=== PATIENT | male | born 1975 | race Caucasian/White ===

== ENCOUNTER 2017-01-02 13:09 | Inpatient (IN) | payer SELFPAY ==
[2017-01-02 15:02] LABS: Hematocrit 47 % (42-52); Hemoglobin 15.9 g/dl (14.0-18.0); Mean Corpuscular HGB Conc 34 g/dl (31-36); Mean Corpuscular Hemoglobin 31 pg (27-31); Mean Corpuscular Volume 90 fL (80-94); Mean Platelet Volume 8 um3 (7.4-10.4); Red Blood Count 5.19 10^6/ul (4.0-5.4); Red Cell Distribution Width 13 % (10.5-15); White Blood Count 7.5 10^3/ul (3.5-10.8)
[2017-01-02 15:20] LABS: ALT 42 U/L (7-52); AST 28 U/L (13-39); Albumin 4.6 g/dL (3.2-5.2); Alkaline Phosphatase 67 U/L (34-104); Anion Gap 10 mmol/L (2-11); Blood Urea Nitrogen 13 mg/dL (6-24); CO2 Carbon Dioxide 23 mmol/L (22-32); Calcium 10.1 mg/dL (8.6-10.3); Chloride 104 mmol/L (101-111); Creatine Kinase 342 U/L (10-223); EGFR African American 96.4 (>60); Globulin 3.4 g/dL (2-4); Glucose 105 mg/dL (70-100); Potassium 3.8 mmol/L (3.5-5.0); Sodium 137 mmol/L (133-145)
[2017-01-02 15:41] LABS: Acetaminophen < 15 mcg/mL; Alcohol < 10 mg/dL (<10); Salicylate < 2.50 mg/dL (<30)
[2017-01-02 15:51] LABS: TSH (Thyroid Stimulating Horm) 2.52 mcIU/mL (0.34-5.60)
[2017-01-02 16:17] LABS: Urine Bacteria Absent (Absent); Urine Bilirubin Negative (Negative); Urine Glucose Negative (Negative); Urine Nitrite Negative (Negative)
[2017-01-02 16:44] LABS: Benzodiazepine Urine Screen None Detected (None Detect)
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
[2017-01-02] MEDS ORDERED: QUEtiapine XR TAB* 50 MG ONE (21:52)
[2017-01-03] MEDS ORDERED: Al Hydrox/Mg Hydrox/Simet LIQ* 30 ML UDC PO PRN (02:23)
[2017-01-03] MEDS ORDERED: Acetaminophen TAB* 325 MG PO PRN (02:23)
[2017-01-03] MEDS: Vitamin THERAPEUTIC TAB PO SCH (10:30)
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
[2017-01-03] MEDS ORDERED: Influenza VAC *QUAD* 2017-18* 0.5 ML SYRINGE IM ONE (17:00)
[2017-01-03] MEDS ORDERED: LORazepam TAB(*) 1 MG PO ONE (18:17)
[2017-01-03] MEDS ORDERED: LORazepam TAB(*) 1 MG PO PRN (18:17)
[2017-01-03] MEDS: ARIPiprazole TAB* 15 MG PO SCH (20:30)
[2017-01-04] MEDS ORDERED: Influenza VAC *QUAD* 2017-18* 0.5 ML SYRINGE IM ONE (09:00)
[2017-01-04] MEDS: ARIPiprazole TAB* 15 MG PO SCH (10:16)
[2017-01-04] MEDS: Vitamin THERAPEUTIC TAB PO SCH (10:16)
[2017-01-04 10:26] LABS: HDL Cholesterol 32.4 mg/dL
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
[2017-01-04] MEDS: Neomycin/Polym/Bacit TOP OINT* 15 GM TOPICAL SCH (19:17)
[2017-01-05] MEDS: Vitamin THERAPEUTIC TAB PO SCH (10:21)
[2017-01-05] MEDS: ARIPiprazole TAB* 15 MG PO SCH (10:21)
[2017-01-05] MEDS: Neomycin/Polym/Bacit TOP OINT* 15 GM TOPICAL SCH (10:22)
[2017-01-06] MEDS: Vitamin THERAPEUTIC TAB PO SCH (09:49)
[2017-01-06] MEDS: ARIPiprazole TAB* 15 MG PO SCH (09:49)
[2017-01-06] MEDS: Neomycin/Polym/Bacit TOP OINT* 15 GM TOPICAL SCH (09:50)
--- NOTE | 2017-01-06 19:10 | PN ---
Subjective - Subjective Service Type: 42037 Hosp care 15 min low complexity Subjective: Johnie denies any problems especially any form of hallucinations. Very soft spoken, pleasent but guarded. At times mumbles to self. Objective - Appearance Appearance: Obese Dysmorphic Features: No Hygiene: Normal Grooming: Disheveled - Behavior Psychomotor Activities: Abnormal-Decreased Exhibits Abnormal Movement: No - Attitude and Relatedness Attitude and Relatedness: Cooperative Eye Contact: Fair - Speech Quality: Unpressured Latencies: Long Quantity: Terse - Mood Patient's Decription of Mood: "Fine" - Affect Observed Affect: Constricted Affect Consistent with: Euthymia - Thought Process Patient's Thought Process: Coherent, Circumstantial, Impoverished Thought Content: No Passive Wish, No Suicidal Planning, No Homicidal Ideation, No Paranoid Ideation - Sensorium Experiencing Hallucinations: No, Sensorium is Clear Type of Hallucinations: Visual: No, Auditory: No, Command: No - Level of Consciousness Level of Consciousness: Alert Orientation: Yes Intact, Yes Orientated to Time, Yes Orientated to Place, Yes Orientated to Person - Impulse Control Impulse Control: Intact - Insight and Judgement Insight and Judgement: Poor - Group Participation Particating in Group Activities: Yes - Medication Management Medication Management Adherence: Yes Assessment - Assessment Merits Inpatient Hospitalization: [facility] Inpatient DSM-IV Dx: 1. Schizophrenia, paranoid Plan - Plan Treatment Plan: Name: JOHNIE ADAIR JR Birthdate: 1975 [id number] Medications: Current Medications Acetaminophen (Tylenol Tab*) 650 mg PO Q4H PRN PRN Reason: PAIN or TEMP > 101 F Al Hydrox/Mg Hydrox/Simethicone (Maalox Plus*) 30 ml PO Q4H PRN PRN Reason: INDIGESTION Aripiprazole (Abilify Tab*) 15 mg PO DAILY [facility] Last Admin: 01/06/17 09:49 Dose: 15 mg Lorazepam (Ativan Tab(*)) 2 mg PO Q6H PRN PRN Reason: ANXIETY Last Admin: 01/05/17 21:59 Dose: 2 mg Multivitamins (Theragran Tab*) 1 tab PO DAILY [facility] Last Admin: 01/06/17 09:49 Dose: 1 tab Neomycin/Polymyxin/Bacitracin (Neosporin Top Oint Tube*) 1 applic TOPICAL DAILY [facility] Last Admin: 01/06/17 09:50 Dose: 1 applic - Discharge Plan Discharge Plan: Outpatient Follow Up Outpatient Program: [facility]
[2017-01-07] MEDS: ARIPiprazole TAB* 15 MG PO SCH ×2 (08:56→20:25)
[2017-01-07] MEDS: Vitamin THERAPEUTIC TAB PO SCH (08:56)
[2017-01-07] MEDS: Neomycin/Polym/Bacit TOP OINT* 15 GM TOPICAL SCH (08:57)
--- NOTE | 2017-01-07 10:41 | PN ---
Subjective - Subjective Service Type: [id number] Hosp care 15 min low complexity Subjective: Patient noted to be visible in the milieu and attending some groups over the weekend. He reports his mood as "okay" today. Patient reports his sleep and appetite are "good". Patient denies thoughts that peers or staff are plotting to harm. He reports benefit from the hospitalization. He reports med compliance and denies med s/e's. Patient continues to believe his cousin is plotting to harm him. He reports multiple times where he "put it together in my mind" what he was trying to do to me before he could. Patient reports he does not want to return to his family home. He reports desire to stay in the hospital as long as possible. He reports desire to get his own apartment. He denies SI/HI and AH/VH. Objective - Appearance Appearance: Obese Dysmorphic Features: No Hygiene: Normal Grooming: Fairly Well Kept - Behavior Psychomotor Activities: Normal Exhibits Abnormal Movement: No - Attitude and Relatedness Attitude and Relatedness: Cooperative Eye Contact: Fair - Speech Quality: Unpressured Latencies: Normal Quantity: Appropriate - Mood Patient's Decription of Mood: "Okay" - Affect Observed Affect: Fair Affect Consistent with: Euthymia - Thought Process Patient's Thought Process: Coherent Thought Content: No Passive Wish, No Suicidal Planning, No Homicidal Ideation, No Paranoid Ideation - Sensorium Experiencing Hallucinations: No, Sensorium is Clear Type of Hallucinations: Visual: No, Auditory: No, Command: No - Level of Consciousness Level of Consciousness: Alert Orientation: Yes Intact, Yes Orientated to Time, Yes Orientated to Place, Yes Orientated to Person - Impulse Control Impulse Control: Intact - Insight and Judgement Insight and Judgement: Fair - Group Participation Particating in Group Activities: Yes - Medication Management Medication Management Adherence: Yes Assessment - Assessment Merits Inpatient Hospitalization: For Immediate Safety, For Stabilization Inpatient DSM-IV Dx: 1. Schizophrenia, paranoid Plan - Plan Treatment Plan: Name: THEA ADAIR Birthdate: 1975 [id number] PLAN: ------ 1. Continue admission to [facility] [facility] for safety and symptom mx. 2. Continue Abilify 15mg po qhs for psychosis. Plan to uptitrate to 30mg on Saturday. 3. Continue working to obtain collateral information from family. 4. Patient to participate in milieu and group activities. Continued Medication Management: Start Medication Medications: Current Medications Acetaminophen (Tylenol Tab*) 650 mg PO Q4H PRN PRN Reason: PAIN or TEMP > 101 F Al Hydrox/Mg Hydrox/Simethicone (Maalox Plus*) 30 ml PO Q4H PRN PRN Reason: INDIGESTION Aripiprazole (Abilify Tab*) 15 mg PO BEDTIME HARSHAL Lorazepam (Ativan Tab(*)) 2 mg PO Q6H PRN PRN Reason: ANXIETY Last Admin: 01/05/17 21:59 Dose: 2 mg Multivitamins (Theragran Tab*) 1 tab PO DAILY HARSHAL Last Admin: 01/07/17 08:56 Dose: 1 tab Neomycin/Polymyxin/Bacitracin (Neosporin Top Oint Tube*) 1 applic TOPICAL DAILY HARSHAL Last Admin: 01/07/17 08:57 Dose: 1 applic - Discharge Plan Discharge Plan: Outpatient Follow Up
--- NOTE | 2017-01-07 13:05 | PN ---
MHU: Group Therapy Note - Service Type Service Type: [id number] Group Psychotherapy - Cognitive Behavioral Group Therapy ( CBT):Patient was attentive and participatory in CBT programming this morning, and remained in good behavioral control. Patient expressed positive insights regarding relevant treatment interventions and goals.
[2017-01-08] MEDS: Vitamin THERAPEUTIC TAB PO SCH (10:04)
[2017-01-08] MEDS: Neomycin/Polym/Bacit TOP OINT* 15 GM TOPICAL SCH (10:05)
--- NOTE | 2017-01-08 11:18 | PN ---
MHU: Group Therapy Note - Service Type Service Type: [id number] Group Psychotherapy - Cognitive Behavioral Group Therapy ( CBT):Patient was attentive and participatory in CBT programming this morning, and remained in good behavioral control. Patient expressed positive insights regarding relevant treatment interventions and goals.
--- NOTE | 2017-01-08 16:00 | PN ---
Subjective - Subjective Service Type: [id number] Hosp care 15 min low complexity Subjective: Patient noted to be visible in the milieu, isolative, but participating in milieu activities and groups. Patient reports ongoing benefit from his admission. He reports ongoing paranoid ideations regarding returning home after discharge. He still feels his nephew is pumping a gas into his room through the [place]. Patient is med compliant and denies med s/e's. Patient again reports good sleep last night and reports good appetite. He continues to report desire to discharge to a residential facility. He denies SI/HI and AH/VH. Objective - Appearance Appearance: Obese Dysmorphic Features: No Hygiene: Normal Grooming: Fairly Well Kept - Behavior Psychomotor Activities: Normal Exhibits Abnormal Movement: No - Attitude and Relatedness Attitude and Relatedness: Cooperative Eye Contact: Fair - Speech Quality: Unpressured Latencies: Normal Quantity: Appropriate - Mood Patient's Decription of Mood: "Anxious" - Affect Observed Affect: Fair Affect Consistent with: Euthymia - Thought Process Patient's Thought Process: Coherent Thought Content: Yes Paranoid Ideation, No Passive Wish, No Suicidal Planning, No Homicidal Ideation - Sensorium Experiencing Hallucinations: No, Sensorium is Clear Type of Hallucinations: Visual: No, Auditory: No, Command: No - Level of Consciousness Level of Consciousness: Alert Orientation: Yes Intact, Yes Orientated to Time, Yes Orientated to Place, Yes Orientated to Person - Impulse Control Impulse Control: Intact - Insight and Judgement Insight and Judgement: Fair - Group Participation Particating in Group Activities: Yes - Medication Management Medication Management Adherence: Yes Assessment - Assessment Merits Inpatient Hospitalization: For Immediate Safety, For Stabilization Inpatient DSM-IV Dx: 1. Schizophrenia, paranoid Plan - Plan Treatment Plan: Name: THEA ADAIR Birthdate: 1975 [id number] PLAN: ------ 1. Continue admission to [facility] for safety and symptom mx. 2. Increase Abilify from 15mg to 30mg po qhs for psychosis. 3. Collateral information gained from family. 4. Patient to participate in milieu and group activities. Medications: Current Medications Acetaminophen (Tylenol Tab*) 650 mg PO Q4H PRN PRN Reason: PAIN or TEMP > 101 F Al Hydrox/Mg Hydrox/Simethicone (Maalox Plus*) 30 ml PO Q4H PRN PRN Reason: INDIGESTION Aripiprazole (Abilify Tab*) 15 mg PO BEDTIME HARSHAL Last Admin: 01/07/17 20:25 Dose: 15 mg Lorazepam (Ativan Tab(*)) 2 mg PO Q6H PRN PRN Reason: ANXIETY Last Admin: 01/05/17 21:59 Dose: 2 mg Multivitamins (Theragran Tab*) 1 tab PO DAILY HARSHAL Last Admin: 01/08/17 10:04 Dose: 1 tab Neomycin/Polymyxin/Bacitracin (Neosporin Top Oint Tube*) 1 applic TOPICAL DAILY HARSHAL Last Admin: 01/08/17 10:05 Dose: 1 applic - Discharge Plan Discharge Plan: Outpatient Follow Up
[2017-01-08] MEDS: ARIPiprazole TAB* 15 MG PO SCH ×2 (20:35→20:53)
[2017-01-09] MEDS: Vitamin THERAPEUTIC TAB PO SCH ×2 (09:14→09:18)
[2017-01-09] MEDS: Neomycin/Polym/Bacit TOP OINT* 15 GM TOPICAL SCH (09:19)
--- NOTE | 2017-01-09 10:46 | PN ---
Subjective - Subjective Service Type: [id number] Hosp care 15 min low complexity Subjective: Patient noted to be visible in the milieu, continues to be isolative, but participates in milieu activities and groups. Patient reports ongoing paranoid ideations regarding returning home after discharge. He reports a good visit from his father. Patient is med compliant and denies med s/e's. Patient again reports good sleep last night and reports good appetite. He continues to report desire to discharge to a residential facility. He does not want to return to his home. He denies SI/HI and AH/VH. Objective - Appearance Appearance: Obese Dysmorphic Features: No Hygiene: Normal Grooming: Fairly Well Kept - Behavior Psychomotor Activities: Normal Exhibits Abnormal Movement: No - Attitude and Relatedness Attitude and Relatedness: Cooperative Eye Contact: Fair - Speech Quality: Unpressured Latencies: Normal Quantity: Appropriate - Mood Patient's Decription of Mood: "Anxious" - Affect Observed Affect: Fair Affect Consistent with: Euthymia - Thought Process Patient's Thought Process: Coherent Thought Content: Yes Paranoid Ideation, No Passive Wish, No Suicidal Planning, No Homicidal Ideation - Sensorium Experiencing Hallucinations: No, Sensorium is Clear Type of Hallucinations: Visual: No, Auditory: No, Command: No - Level of Consciousness Level of Consciousness: Alert Orientation: Yes Intact, Yes Orientated to Time, Yes Orientated to Place, Yes Orientated to Person - Impulse Control Impulse Control: Intact - Insight and Judgement Insight and Judgement: Fair - Group Participation Particating in Group Activities: Yes - Medication Management Medication Management Adherence: Yes Assessment - Assessment Merits Inpatient Hospitalization: For Immediate Safety, For Stabilization Inpatient DSM-IV Dx: 1. Schizophrenia, paranoid Plan - Plan Treatment Plan: Name: THEA ADAIR Birthdate: 1975 [id number] PLAN: ------ 1. Continue admission to [facility] [place] [facility] for safety and symptom mx. 2. Continue Abilify 30mg po qhs for psychosis. 3. Collateral information gained from family. 4. Begin planning regarding discharge disposition. 5. Patient to participate in milieu and group activities. Medications: Current Medications Acetaminophen (Tylenol Tab*) 650 mg PO Q4H PRN PRN Reason: PAIN or TEMP > 101 F Al Hydrox/Mg Hydrox/Simethicone (Maalox Plus*) 30 ml PO Q4H PRN PRN Reason: INDIGESTION Aripiprazole (Abilify Tab*) 30 mg PO BEDTIME HARSHAL Last Admin: 01/08/17 20:53 Dose: Not Given Lorazepam (Ativan Tab(*)) 2 mg PO Q6H PRN PRN Reason: ANXIETY Last Admin: 01/05/17 21:59 Dose: 2 mg Multivitamins (Theragran Tab*) 1 tab PO DAILY HARSHAL Last Admin: 01/09/17 09:18 Dose: 1 tab Neomycin/Polymyxin/Bacitracin (Neosporin Top Oint Tube*) 1 applic TOPICAL DAILY HARSHAL Last Admin: 01/09/17 09:19 Dose: 1 applic - Discharge Plan Discharge Plan: Outpatient Follow Up
--- NOTE | 2017-01-09 16:22 | PN ---
MHU: Group Therapy Note - Service Type Service Type: [id number] Group Psychotherapy - Medication Education Group: Patient was attentive and participatory in group, and remained in good behavioral control. Patient expressed positive insights regarding relevant treatment interventions. Patient stated understanding of material discussed and had appropriate questions.
[2017-01-09] MEDS: ARIPiprazole TAB* 15 MG PO SCH (20:07)
[2017-01-09] MEDS: Docusate CAP* 100 MG PO SCH (20:08)
[2017-01-10] MEDS: Vitamin THERAPEUTIC TAB PO SCH (10:04)
--- NOTE | 2017-01-10 10:43 | PN ---
Subjective - Subjective Service Type: [id number] Hosp care 15 min low complexity Subjective: Patient noted to be visible in the milieu, noted to be more social with peers. Patient is participating in milieu activities and groups. Patient reports ongoing paranoid ideations regarding returning home after discharge. Patient is med compliant and denies med s/e's. Patient again reports good sleep last night and reports good appetite. Patient reports constipation and is amenable to start of 1x MagCitrate. He continues to report desire to discharge to a residential facility. He does not want to return to his home. He denies SI/HI and AH/VH. Objective - Appearance Appearance: Obese Dysmorphic Features: No Hygiene: Normal Grooming: Fairly Well Kept - Behavior Psychomotor Activities: Normal Exhibits Abnormal Movement: No - Attitude and Relatedness Attitude and Relatedness: Cooperative Eye Contact: Fair - Speech Quality: Unpressured Latencies: Normal Quantity: Appropriate - Mood Patient's Decription of Mood: "Fine" - Affect Observed Affect: Fair Affect Consistent with: Euthymia - Thought Process Patient's Thought Process: Coherent Thought Content: Yes Paranoid Ideation, No Passive Wish, No Suicidal Planning, No Homicidal Ideation - Sensorium Experiencing Hallucinations: No, Sensorium is Clear Type of Hallucinations: Visual: No, Auditory: No, Command: No - Level of Consciousness Level of Consciousness: Alert Orientation: Yes Intact, Yes Orientated to Time, Yes Orientated to Place, Yes Orientated to Person - Impulse Control Impulse Control: Intact - Insight and Judgement Insight and Judgement: Fair - Group Participation Particating in Group Activities: Yes - Medication Management Medication Management Adherence: Yes Assessment - Assessment Merits Inpatient Hospitalization: For Immediate Safety, For Stabilization Inpatient DSM-IV Dx: 1. Schizophrenia, paranoid Plan - Plan Treatment Plan: Name: THEA ADAIR Birthdate: 1975 [id number] PLAN: ------ 1. Continue admission to [facility] for safety and symptom mx. 2. Continue Abilify 30mg po qhs for psychosis. 3. Collateral information gained from family. 4. Begin planning regarding discharge disposition. 5. Patient to participate in milieu and group activities. Medications: Current Medications Acetaminophen (Tylenol Tab*) 650 mg PO Q4H PRN PRN Reason: PAIN or TEMP > 101 F Al Hydrox/Mg Hydrox/Simethicone (Maalox Plus*) 30 ml PO Q4H PRN PRN Reason: INDIGESTION Aripiprazole (Abilify Tab*) 30 mg PO BEDTIME HARSHAL Last Admin: 01/09/17 20:07 Dose: 30 mg Docusate Sodium (Colace Cap*) 200 mg PO BEDTIME HARSHAL Last Admin: 01/09/17 20:08 Dose: 200 mg Lorazepam (Ativan Tab(*)) 2 mg PO Q6H PRN PRN Reason: ANXIETY Last Admin: 01/05/17 21:59 Dose: 2 mg Multivitamins (Theragran Tab*) 1 tab PO DAILY HARSHAL Last Admin: 01/10/17 10:04 Dose: 1 tab Neomycin/Polymyxin/Bacitracin (Neosporin Top Oint Tube*) 1 applic TOPICAL DAILY HARSHAL Last Admin: 01/09/17 09:19 Dose: 1 applic - Discharge Plan Discharge Plan: Outpatient Follow Up
[2017-01-10] MEDS: Neomycin/Polym/Bacit TOP OINT* 15 GM TOPICAL SCH (12:56)
[2017-01-10] MEDS ORDERED: Magnesium CITRATE* 300 ML BTL PO ONE (17:00)
[2017-01-10] MEDS: Docusate CAP* 100 MG PO SCH (20:16)
[2017-01-10] MEDS: ARIPiprazole TAB* 15 MG PO SCH (20:16)
[2017-01-11] MEDS: Vitamin THERAPEUTIC TAB PO SCH (07:43)
[2017-01-11] MEDS: Neomycin/Polym/Bacit TOP OINT* 15 GM TOPICAL SCH (07:44)
--- NOTE | 2017-01-11 10:00 | PN ---
Subjective - Subjective Service Type: [id number] Hosp care 15 min low complexity Subjective: Patient noted to be visible in the milieu, noted to be social with select peers. Patient is participating in milieu activities and groups. Patient reports ongoing paranoid ideations regarding returning home after discharge. Patient is med compliant and denies med s/e's. Patient again reports good sleep last night and reports good appetite. Patient is med compliant and denies med s/e's. He does not want to return to his home. He denies SI/HI and AH/VH. Objective - Appearance Appearance: Well Developed/Nourished, Healthy Appearing Dysmorphic Features: No Hygiene: Normal Grooming: Fairly Well Kept - Behavior Psychomotor Activities: Normal Exhibits Abnormal Movement: No - Attitude and Relatedness Attitude and Relatedness: Cooperative Eye Contact: Fair - Speech Quality: Unpressured Latencies: Normal Quantity: Terse - Affect Observed Affect: Fair Affect Consistent with: Euthymia - Thought Process Patient's Thought Process: Coherent Thought Content: No Passive Wish, No Suicidal Planning, No Homicidal Ideation, No Paranoid Ideation - Sensorium Experiencing Hallucinations: No, Sensorium is Clear Type of Hallucinations: Visual: No, Auditory: No, Command: No - Level of Consciousness Level of Consciousness: Alert Orientation: Yes Intact, Yes Orientated to Time, Yes Orientated to Place, Yes Orientated to Person - Impulse Control Impulse Control: Intact - Insight and Judgement Insight and Judgement: Impaired - Group Participation Particating in Group Activities: Yes - Medication Management Medication Management Adherence: Yes Assessment - Assessment Merits Inpatient Hospitalization: For Immediate Safety, For Stabilization Inpatient DSM-IV Dx: 1. Schizophrenia, paranoid Plan - Plan Treatment Plan: Name: THEA ADAIR Birthdate: 1975 [id number] PLAN: ------ 1. Continue admission to [facility] for safety and symptom mx. 2. Continue Abilify 30mg po qhs for psychosis. Plan to re-visit initiation of Abilify Maintena with patient on Saturday. 3. Collateral information gained from family. 4. Begin planning regarding discharge disposition. 5. Patient to participate in milieu and group activities. Medications: Current Medications Acetaminophen (Tylenol Tab*) 650 mg PO Q4H PRN PRN Reason: PAIN or TEMP > 101 F Al Hydrox/Mg Hydrox/Simethicone (Maalox Plus*) 30 ml PO Q4H PRN PRN Reason: INDIGESTION Aripiprazole (Abilify Tab*) 30 mg PO BEDTIME HARSHAL Last Admin: 01/10/17 20:16 Dose: 30 mg Docusate Sodium (Colace Cap*) 200 mg PO BEDTIME HARSHAL Last Admin: 01/10/17 20:16 Dose: 200 mg Lorazepam (Ativan Tab(*)) 2 mg PO Q6H PRN PRN Reason: ANXIETY Last Admin: 01/05/17 21:59 Dose: 2 mg Multivitamins (Theragran Tab*) 1 tab PO DAILY HARSHAL Last Admin: 01/11/17 07:43 Dose: 1 tab Neomycin/Polymyxin/Bacitracin (Neosporin Top Oint Tube*) 1 applic TOPICAL DAILY HARSHAL Last Admin: 01/11/17 07:44 Dose: 1 applic - Discharge Plan Discharge Plan: Outpatient Follow Up
[2017-01-11] MEDS: Docusate CAP* 100 MG PO SCH (20:01)
[2017-01-11] MEDS: ARIPiprazole TAB* 15 MG PO SCH (20:01)
[2017-01-12] MEDS: Vitamin THERAPEUTIC TAB PO SCH (08:34)
[2017-01-12] MEDS: Neomycin/Polym/Bacit TOP OINT* 15 GM TOPICAL SCH (08:34)
[2017-01-12] MEDS: ARIPiprazole TAB* 15 MG PO SCH (20:13)
[2017-01-12] MEDS: Docusate CAP* 100 MG PO SCH (20:13)
[2017-01-13] MEDS: Vitamin THERAPEUTIC TAB PO SCH (09:14)
[2017-01-13] MEDS: Neomycin/Polym/Bacit TOP OINT* 15 GM TOPICAL SCH (09:15)
[2017-01-13] MEDS: Docusate CAP* 100 MG PO SCH (20:19)
[2017-01-13] MEDS: ARIPiprazole TAB* 15 MG PO SCH (20:19)
[2017-01-14 07:47] VITALS: BP 129/72
[2017-01-14] MEDS: Vitamin THERAPEUTIC TAB PO SCH (09:32)
[2017-01-14] MEDS: Neomycin/Polym/Bacit TOP OINT* 15 GM TOPICAL SCH (09:32)
--- NOTE | 2017-01-14 11:31 | PN ---
MHU: Group Therapy Note - Service Type Service Type: [id number] Group Psychotherapy - Cognitive Behavioral Group Therapy ( CBT):Patient was attentive and participatory in CBT programming this morning, and remained in good behavioral control. Patient expressed positive insights regarding relevant treatment interventions and goals.
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
== END 2017-01-14 14:45 | disposition home or self-care (01) | DRG 885 ==
LOC: ED 13:09 → BSU 19:47
PROVIDERS: ADMIT Psychiatry & Neurology Psychiatry; ATTEND Psychiatry & Neurology Psychiatry
DX: F20.0 Paranoid schizophrenia (principal); Z81.8 Family history of other mental and behavioral disorders
CPT/HCPCS: 36415; 80053; 80061; 80307; 80320; 80329; 81003; 81015; 82550; 83036; 84443; 85025; 90686; 90853; 93005; 99222; 99231; 99238; A9270-GY; G0480